=== PATIENT | male | born 2000 | race Caucasian/White ===

== ENCOUNTER 2018-07-24 17:12 | Emergency (ER) | payer SELFPAY, OTHER ==
[2018-07-24] MEDS: KETOROLAC 30 MG INJ IM (19:18)
[2018-07-24] MEDS: ACETAMINOPHEN 325 MG TAB PO (19:31)
== END 2018-07-24 20:27 | disposition home or self-care (01) ==
LOC: FTE 17:12
DX: J10.1 Influenza due to other identified influenza virus with other respiratory manifestations (principal); J45.909 Unspecified asthma, uncomplicated
CPT/HCPCS: 71046; 87400; 96372; 99284-25